=== PATIENT | female | born 1980 | race Caucasian/White ===

== ENCOUNTER 2021-08-10 04:23 | Emergency (ER) | payer MEDICAID, SELFPAY ==
[2021-08-10] VITALS (7 sets, daily range): BP systolic 112–141; BP diastolic 63–87; PULSE 77–94; RESP 16–18; TEMP 37.1; O2SAT 95–100; BMI 45.7
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
--- NOTE | 2021-08-10 06:49 | EKG12_ITS ---
Test Reason : CP Blood Pressure : / mmHG Vent. Rate : 075 BPM Atrial Rate : 075 BPM P-R Int : 134 ms QRS Dur : 084 ms QT Int : 412 ms P-R-T Axes : 016 055 012 degrees QTc Int : 460 ms Normal sinus rhythm Nonspecific T wave abnormality Prolonged QT Abnormal ECG Confirmed by ETELVINA GILLIAM, ARI ([id number]), medical transcription editor SERENITY MELTON ([id number]) on 08/11/2021 11:25:53 AM Referred By: Confirmed By:ARI MAIN MD
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
[2021-08-10 07:11] LABS: Mucous, Urine 0 SEEN /hpf (<or=2+)
[2021-08-10 07:14] LABS: Color, Urine Yellow (Yellow); Glucose, Dipstick Normal (Normal); Ketone-Dipstick 5 mg/dl (Negative); Leukocyte Esterase-Dipstick 500 /ul (Negative); Nitrite-Dipstick Positive (Negative); Occult Blood-Urine 50 /ul (Negative); Protein-Dipstick 30 mg/dl (Negative); Specific Gravity, Urine 1.015 (1.002-1.030); Urine Bilirubin Dipstick Negative (Negative); Urine Urobilinogen Normal (Normal)
[2021-08-10 07:15] LABS: Urine Clarity Sl Cloudy (Clear)
[2021-08-10 07:17] LABS: Internal QC Validated? YES +Cl - CLEAR BKGD; Pregnancy, Urine Negative Negative
[2021-08-10 07:20] LABS: White Blood Cells 50-100 SEEN /hpf (0-5)
[2021-08-10 07:21] LABS: Bacteria 2+ /hpf (None Seen); Red Blood Cells-Urine 5-10 SEEN /hpf (0-5); Squamous Epithelial Cells - UA 0-5 SEEN /hpf (5-10)
[2021-08-10 07:38] LABS: Absolute Lymphocyte Count 3.05 X10^3/uL (0.83-4.51); Absolute Neutrophil Count 12.1 X10^3/uL (2.0-7.7); Basophil# 0.06 X10^3/uL; Basophil% 0.4 % (0-1); Eosinophil# 0.22 X10^3/uL; Eosinophils% 1.3 % (0-5); Hematocrit 38.5 % (37-47); Hemoglobin 13.9 g/dL (12.0-15.0); Lymphocyte # 3.05 X10^3/ul (0.83-4.51); Lymphocyte % 18.6 % (19-41); Mean Corp Hgb Conc 36.1 g/dL (32-36); Mean Corpuscular Hgb 30.4 pg (27.0-32.0); Mean Corpuscular Volume 84.2 fL (81-99); Mean Platelet Vol. 9.2 fl (6.2-12.0); Monocyte# 0.83 X10^3/uL; Monocyte% 5.1 % (0-10); NRBC Flagged by Analyzer 0 % (0-5); Neutrophil # 12.11 X10^3/uL (2.7-7.7); Platelet Count 358 K/mm3 (150-450); RBC Distribution Width CV 14.6 % (11.6-14.6); RBC Distribution Width SD 44.4 fl (35.1-43.9); Red Blood Count 4.57 M/mm3 (4.2-5.4); White Blood Count 16.4 K/mm3 (4.4-11.0)
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
[2021-08-10 07:45] LABS: Amphetamine Urine VISTA POSITIVE (<1000 ng/mL); Barbiturate Urine VISTA NEGATIVE (< 200 ng/mL); Benzodiazepine Urine VISTA NEGATIVE (< 200 ng/mL); Cocaine Urine VISTA NEGATIVE (< 300 ng/mL); Ecstacy Urine VISTA NEGATIVE (< 500 ng/mL); Methadone Urine VISTA NEGATIVE (< 300 ng/mL); PCP Urine VISTA NEGATIVE (< 25 ng/mL); THC Urine VISTA POSITIVE (< 50 ng/mL); Vista UDS pH Range 6
[2021-08-10 07:51] LABS: Anion Gap 5 (5-15); BUN 7 mg/dL (7-18); BUN/Creat Ratio 7.2 RATIO (10-20); Calcium,Total 9.3 mg/dL (8.5-10.1); Chloride 107 mmol/L (98-107); Creatinine, Serum 0.97 mg/dL (0.55-1.02); EST Glomerular Filtration Rate 67 mL/min (>60); Est Glom Filt Rate - Afr Amer 81 mL/min (>60); Estimated Creatinine Clearance 59.76 ml/min; Glucose 100 mg/dL (74-106); Potassium 3.5 mmol/L (3.5-5.1); Sodium Level 139 mmol/L (136-145)
[2021-08-10 08:06] LABS: Acetaminophen (Tylenol) Level < 2.0 ug/mL (10.0-30.0); Alcohol, Blood (Medical)-Serum < 3.0 mg/dL; Salicylate 3.1 mg/dL (2.8-20.0)
[2021-08-10] MEDS: Ceftriaxone 1 GM/50 ML BAG IV (08:43)
[2021-08-10 09:13] LABS: CPK Total, Creatine Kinase 656 U/L (26-192)
[2021-08-10] MEDS: 0.9% Normal Saline 1,000 ML 999 ML IV (09:30)
--- NOTE | 2021-08-10 11:46 | CM.ED ---
Social Work Telephone call from Ibis miller. Patient is pending at [facility]. Will continue to follow. Sparkle Mitchell MSW, LINDSEY
[2021-08-10] MEDS: LORazepam 2 MG/ML Syringe 1 MG IV (12:00)
[2021-08-10] MEDS: Ziprasidone IM 20 MG/ML VIAL IM (13:09)
--- NOTE | 2021-08-10 13:35 | ED.RN ---
PT. BECAME AGITATED EARLIER AFTER LEARNING THEY HAD BEEN PINK SLIPPED. WAS MEDICATED PER ORDER. IS CURRENTLY TEARFUL IN BED. WILL CONTINUE TO MONITOR.
--- NOTE | 2021-08-10 17:15 | CM.ED ---
Social Work Telephone call from Neal Winters. Request for COVID-19 test results to be faxed, we can't read the ones we have. COVID-19 test results faxed. Will continue to follow. Sparkle HIGGINS, LINDSEY
--- NOTE | 2021-08-10 19:17 | CM.ED ---
Social Work Telephone call from Nani Estevez. Patient has been accepted to [facility], need pink slip before able to give admitting information. [address] slip faxed to [facility]. Nursing staff updated. Will continue to follow. Sparkle HIGGINS, LINDSEY
--- NOTE | 2021-08-10 21:15 | CM.ED ---
Social Work Telephone call to [facility], david. Patient accepted by Dr. Mojica to the 1400 unit. Nurse to call report to [phone]. Medical team updated. [facility] to set up transportation. PLAN: [facility]. Sparkle HIGGINS, LINDSEY
--- NOTE | 2021-08-10 22:39 | ED.RN ---
PT. REQUESTED HOME MEDICATION DOXEPIN AND GABAPENTIN. DR. KABA GAVE VERBAL ORDER. SEE MAR.
[2021-08-10] MEDS: DOXEPIN HCL 50 MG CAPSULE PO (23:14)
[2021-08-10] MEDS: Gabapentin 300 MG Capsule PO (23:14)
--- NOTE | 2021-08-10 23:15 | ED.RN ---
PT. C/O'D OF CHEST PAIN, MID STERNAL. CALLED FOR EKG.
--- NOTE | 2021-08-10 23:36 | EKG12_ITS ---
Test Reason : MEDICAL CLEARANCE Blood Pressure : / mmHG Vent. Rate : 077 BPM Atrial Rate : 077 BPM P-R Int : 142 ms QRS Dur : 082 ms QT Int : 410 ms P-R-T Axes : 025 053 000 degrees QTc Int : 463 ms Normal sinus rhythm Nonspecific T wave abnormality Confirmed by ETELVINA GILLIAM, ARI ([id number]), production editor SERENITY MELTON ([id number]) on 08/11/2021 11:26:11 AM Referred By: ANA MARIA Confirmed By:ARI MAIN MD
[2021-08-11 00:15] VITALS: RESP 18
[2021-08-11 02:06] VITALS: RESP 16
[2021-08-11 03:45] VITALS: RESP 18
[2021-08-11 04:12] VITALS: PULSE 72; RESP 18; O2SAT 95
[2021-08-11 05:05] VITALS: RESP 16
== END 2021-08-11 05:21 ==
PROVIDERS: Emergency Medicine; Emergency Provider Emergency Medicine; Visit Provider Emergency Medicine
DX: F22 Delusional disorders (principal); F41.9 Anxiety disorder, unspecified; N39.0 Urinary tract infection, site not specified; E66.9 Obesity, unspecified; F17.210 Nicotine dependence, cigarettes, uncomplicated
CPT/HCPCS: 36415; 80048; 80307; 80329; 81001; 81025; 82077; 82550; 85025; 87086; 87088; 87186; 87426; 93005; 96361; 96365; 96372; 96375; 99285; J7030; A4216; G0480; J3486

== ENCOUNTER 2021-09-18 11:01 | Emergency (ER) | payer MEDICAID, SELFPAY ==
[2021-09-18 11:01] VITALS: BP 128/84; PULSE 80; RESP 18; TEMP 36.6; O2SAT 97; BMI 41.5
--- NOTE | 2021-09-18 13:13 | EX.ED.DYSGE1 ---
HPI History of Present Illness Chief Complaint: Abd Pain Narrative Narrative: 40-year-old female with PMH of schizophrenia, anxiety/depression presents with abdominal pain. She is very vague with her history. She states she has had lower abdominal pain for a while. Nothing makes it better or worse. She denies fever, chills, nausea, or vomiting. She reports normal bowel movements and urination. No abdominal surgical history. She denies drinking alcohol. Denies alcohol use. She says she is taking gabapentin, prazosin, and Klonopin. [facility] Medical History (Updated 09/18/21 @ 15:35 by BRAVO Armendariz) Bipolar 1 disorder Depression PTSD (post-traumatic stress disorder) Home Medications clonazepam 0.5 mg PO DAILY 09/18/21 [History Last Taken Unknown] diphenhydramine HCl [Banophen] 50 mg PO DAILY 09/18/21 [History Last Taken Unknown] doxepin 50 mg PO DAILY 09/18/21 [History Last Taken Unknown] fluphenazine HCl 5 mg PO DAILY 09/18/21 [History Last Taken Unknown] gabapentin 300 mg PO DAILY 09/18/21 [History Last Taken Unknown] hydroxyzine pamoate 50 mg PO DAILY 09/18/21 [History Last Taken Unknown] metronidazole 500 mg PO DAILY 09/18/21 [History Last Taken Unknown] omeprazole 40 mg PO DAILY 09/18/21 [History Last Taken Unknown] oxcarbazepine 300 mg PO DAILY 09/18/21 [History Last Taken Unknown] prazosin 1 mg PO DAILY 09/18/21 [History Last Taken Unknown] sertraline 100 mg PO DAILY 09/18/21 [History Last Taken Unknown] ziprasidone HCl 60 mg PO DAILY 09/18/21 [History Last Taken Unknown] Allergy/AdvReac Type Severity Reaction Status Date / Time ibuprofen AdvReac Other Verified 08/10/21 04:34 naproxen AdvReac Other Verified 08/10/21 04:34 Social History Smoking Status: Current every day smoker tobacco type: cigarettes ROS ROS ED ROS Narrative Constitutional: Negative for fever, chills, malaise. Eyes: Negative for visual change. ENT: Negative for sore throat, rhinorrhea. CVS: Negative for palpitations, chest pain, syncope. Respiratory: Negative for shortness of breath, cough, orthopnea. GI: Positive for abdominal pain. Negative for nausea, vomiting, diarrhea, constipation, melena, hematochezia. : Negative for dysuria, hematuria or frequency. Neuro: Negative for headache, motor/sensory dysfunction. Skin: Negative for rash, abscess, or wound. Musc: Negative for joint pain, swelling, trauma. Heme: Negative for easy bruising, bleeding, lymphadenopathy. EXAM Physical Exam Narrative Exam Narrative: CONST: Patient sitting in no acute distress. EYES: Normal inspection. ENT: Normal inspection, moist mucous membranes. NECK: Normal inspection. RESP: No respiratory distress, CTAB. CVS: Regular rate and rhythm, no murmur, no gallop. ABD: Soft with mild diffuse tenderness, no guarding or rebound, nondistended, no hepatosplenomegaly. Back: Normal inspection. SKIN: Color normal, no rash, warm, dry, intact. EXTREMITIES: Normal appearance, no pedal edema. NEURO: Oriented x4. PSYCH: Normal affect. Const Vital Signs: 09/18/21 11:01 Temperature 98 F Temperature Source Temporal Pulse Rate 80 Respiratory Rate 18 Blood Pressure 128/84 H Blood Pressure Mean 98 Pulse Ox 97 Oxygen Delivery Method Room Air MDM MDM MDM Narrative Medical decision making narrative: Patient presents with nonspecific abdominal pain. She appears well nontoxic. Vital signs within normal limits. On examination her heart is regular rate and rhythm. Lungs clear to auscultation. Abdomen is soft with mild diffuse tenderness but no guarding or rebound. Labs show slight leukocytosis at 13.4, otherwise unremarkable. UA and hCG are negative. CT abdomen/pelvis shows no acute process. Patient seemed confused and would not provide a lot of history. She does states she has schizophrenia. For this reason a urine drug screen was obtained and is negative. She will be evaluated by social work to make sure she has somewhere safe to go but at this point she is medically cleared for discharge. Diagnosis 1. Abdominal pain of unknown etiology Lab Data Labs: Laboratory Results - last 24 hr 09/18/21 09/18/21 09/18/21 13:15 13:15 14:00 WBC 13.4 H RBC 4.83 Hgb 14.7 Hct 43.0 MCV 89.0 MCH 30.4 MCHC 34.2 RDW Std Deviation 45.1 H RDW Coeff of Tyson 13.9 Plt Count 298 MPV 9.4 Immature Gran % (Auto) 0.500 Neut % (Auto) 71.1 H Lymph % (Auto) 22.7 Burnet % (Auto) 4.2 Eos % (Auto) 1.2 Baso % (Auto) 0.3 Absolute Neuts (auto) 9.5 H Absolute Lymphs (auto) 3.04 Nucleated RBC % 0 Sodium 138 Potassium 3.8 Chloride 107 Carbon Dioxide 30.0 Anion Gap 1 L BUN 8 Creatinine 0.81 Estim Creat Clear Calc 74.84 Est GFR (MDRD) Af Amer 99 Est GFR (MDRD) Non-Af 82 BUN/Creatinine Ratio 9.9 L Glucose 138 H Calcium 8.9 Total Bilirubin 0.30 AST 18 ALT 42 Alkaline Phosphatase 76 Total Protein 7.6 Albumin 3.9 Globulin 3.7 Albumin/Globulin Ratio 1.1 Urine Color Urine Clarity Urine pH Ur Specific [place] Urine Protein Urine Glucose (UA) Urine Ketones Urine Occult Blood Urine Nitrite Urine Bilirubin Urine Urobilinogen Ur Leukocyte Esterase Urine RBC Urine WBC Ur Squamous Epith Cells Urine Bacteria Urine Mucus Urine Test Urine Opiates Screen NEGATIVE Urine Methadone Screen NEGATIVE Ur Barbiturates Screen NEGATIVE Ur Phencyclidine Scrn NEGATIVE Ur Amphetamines Screen NEGATIVE MDMA (Ecstasy) Screen NEGATIVE U Benzodiazepines Scrn NEGATIVE Urine Cocaine Screen NEGATIVE U Cannabinoids Screen NEGATIVE Ur Drug Screen Comment 09/18/21 14:00 WBC RBC Hgb Hct MCV MCH MCHC RDW Std Deviation RDW Coeff of Tyson Plt Count MPV Immature Gran % (Auto) Neut % (Auto) Lymph % (Auto) Burnet % (Auto) Eos % (Auto) Baso % (Auto) Absolute Neuts (auto) Absolute Lymphs (auto) Nucleated RBC % Sodium Potassium Chloride Carbon Dioxide Anion Gap BUN Creatinine Estim Creat Clear Calc Est GFR (MDRD) Af Amer Est GFR (MDRD) Non-Af BUN/Creatinine Ratio Glucose Calcium Total Bilirubin AST ALT Alkaline Phosphatase Total Protein Albumin Globulin Albumin/Globulin Ratio Urine Color Yellow Urine Clarity Clear Urine pH 6.0 Ur Specific [place] 1.020 Urine Protein Negative Urine Glucose (UA) Normal Urine Ketones Negative Urine Occult Blood Negative Urine Nitrite Negative Urine Bilirubin Negative Urine Urobilinogen Normal Ur Leukocyte Esterase 25 H Urine RBC 0 SEEN Urine WBC 0 SEEN Ur Squamous Epith Cells 0 SEEN Urine Bacteria 0 SEEN Urine Mucus 0 SEEN Urine Test Negative Urine Opiates Screen Urine Methadone Screen Ur Barbiturates Screen Ur Phencyclidine Scrn Ur Amphetamines Screen MDMA (Ecstasy) Screen U Benzodiazepines Scrn Urine Cocaine Screen U Cannabinoids Screen Ur Drug Screen Comment Radiography Diagnostic Testing: Clinical Impression(s) from Imaging Studies Abdomen/Pelvis CT 09/18/21 14:32 IMPRESSION: Negative CT of the abdomen and pelvis with intravenous contrast. Individualized dose optimization techniques were used for this CT. at 1524 Reported and signed by: David Tesfaye MD Electronically Signed: David Tesfaye MD at 15:23 EDT , Discharge Plan Triage Chief Complaint: Abd Pain Dx/Rx/DC Orders Clinical Impression: Abdominal pain Instructions: Abdominal Pain Prescriptions: No Action doxepin 50 mg capsule 50 mg PO DAILY RF: 0 diphenhydramine HCl [Banophen] 50 mg capsule 50 mg PO DAILY RF: 0 prazosin 1 mg capsule 1 mg PO DAILY RF: 0 clonazepam 0.5 mg tablet 0.5 mg PO DAILY RF: 0 sertraline 100 mg tablet 100 mg PO DAILY RF: 0 hydroxyzine pamoate 50 mg capsule 50 mg PO DAILY RF: 0 metronidazole 500 mg tablet 500 mg PO DAILY RF: 0 oxcarbazepine 300 mg tablet 300 mg PO DAILY RF: 0 omeprazole 40 mg capsule,delayed release(DR/EC) 40 mg PO DAILY RF: 0 gabapentin 300 mg capsule 300 mg PO DAILY RF: 0 ziprasidone HCl 60 mg capsule 60 mg PO DAILY RF: 0 fluphenazine HCl 5 mg tablet 5 mg PO DAILY RF: 0 Primary Care Provider: Care Physician,No Primary Referrals: Care Physician,No Primary [Primary Care Provider] - Activity Restrictions/Additional Instructions: Today your blood work and urine tests look normal. We did a CAT scan of your abdomen and pelvis which also appeared normal. The cause of your abdominal pain is unknown. Please take Tylenol ibuprofen as needed and follow-up with your primary care doctor. Disposition Disposition: Home, Self Care
[2021-09-18] MEDS: Ondansetron 4 MG/2 ML Vial IV (13:18)
[2021-09-18] MEDS: Ketorolac 15 MG/ML Vial IV (13:18)
[2021-09-18 13:23] LABS: Absolute Lymphocyte Count 3.04 X10^3/uL (0.83-4.51); Absolute Neutrophil Count 9.5 X10^3/uL (2.0-7.7); Basophil# 0.04 X10^3/uL; Basophil% 0.3 % (0-1); Eosinophil# 0.16 X10^3/uL; Eosinophils% 1.2 % (0-5); Hemoglobin 14.7 g/dL (12.0-15.0); Lymphocyte # 3.04 X10^3/ul (0.83-4.51); Lymphocyte % 22.7 % (19-41); Mean Corp Hgb Conc 34.2 g/dL (32-36); Mean Corpuscular Hgb 30.4 pg (27.0-32.0); Mean Platelet Vol. 9.4 fl (6.2-12.0); Monocyte# 0.56 X10^3/uL; Monocyte% 4.2 % (0-10); NRBC Flagged by Analyzer 0 % (0-5); Neutrophil % 71.1 % (47-70); Platelet Count 298 K/mm3 (150-450); RBC Distribution Width CV 13.9 % (11.6-14.6); RBC Distribution Width SD 45.1 fl (35.1-43.9); Red Blood Count 4.83 M/mm3 (4.2-5.4); White Blood Count 13.4 K/mm3 (4.4-11.0)
[2021-09-18] MEDS: 0.9% Normal Saline 1,000 ML 999 ML IV (13:32)
[2021-09-18 13:46] LABS: ALB/GLOB Ratio 1.1 RATIO (0.9-2.4); AST(SGOT) 18 U/L (15-37); Alanine Aminotransfer ALT/SGPT 42 U/L (13-56); Albumin, Serum 3.9 g/dL (3.2-5.0); Alkaline Phosphatase 76 U/L (45-117); Anion Gap 1 (5-15); BUN 8 mg/dL (7-18); BUN/Creat Ratio 9.9 RATIO (10-20); Calcium,Total 8.9 mg/dL (8.5-10.1); Chloride 107 mmol/L (98-107); Creatinine, Serum 0.81 mg/dL (0.55-1.02); EST Glomerular Filtration Rate 82 mL/min (>60); Est Glom Filt Rate - Afr Amer 99 mL/min (>60); Estimated Creatinine Clearance 74.84 ml/min; Globulin 3.7 g/dL (2.2-4.2); Glucose 138 mg/dL (74-106); Potassium 3.8 mmol/L (3.5-5.1); Protein, Total 7.6 g/dL (6.4-8.2); Sodium Level 138 mmol/L (136-145)
[2021-09-18 14:06] LABS: Bacteria 0 SEEN /hpf (None Seen); Mucous, Urine 0 SEEN /hpf (<or=2+); Red Blood Cells-Urine 0 SEEN /hpf (0-5); Squamous Epithelial Cells - UA 0 SEEN /hpf (5-10); White Blood Cells 0 SEEN /hpf (0-5)
[2021-09-18 14:13] LABS: Color, Urine Yellow (Yellow); Glucose, Dipstick Normal (Normal); Ketone-Dipstick Negative (Negative); Leukocyte Esterase-Dipstick 25 /ul (Negative); Nitrite-Dipstick Negative (Negative); Occult Blood-Urine Negative /ul (Negative); Protein-Dipstick Negative (Negative); Urine Bilirubin Dipstick Negative (Negative); Urine Clarity Clear (Clear); Urine Urobilinogen Normal (Normal)
[2021-09-18 14:16] LABS: Internal QC Validated? YES +Cl - CLEAR BKGD; Pregnancy, Urine Negative Negative
[2021-09-18 14:28] LABS: Amphetamine Urine VISTA NEGATIVE (<1000 ng/mL); Barbiturate Urine VISTA NEGATIVE (< 200 ng/mL); Benzodiazepine Urine VISTA NEGATIVE (< 200 ng/mL); Cocaine Urine VISTA NEGATIVE (< 300 ng/mL); Ecstacy Urine VISTA NEGATIVE (< 500 ng/mL); Methadone Urine VISTA NEGATIVE (< 300 ng/mL); PCP Urine VISTA NEGATIVE (< 25 ng/mL); THC Urine VISTA NEGATIVE (< 50 ng/mL); Vista UDS pH Range 5
--- NOTE | 2021-09-18 14:32 | CT_ITS ---
EXAM: CT ABDOMEN AND PELVIS WITH INTRAVENOUS CONTRAST : 1980 CLINICAL INDICATION: abdominal pain TECHNIQUE: Helically acquired images were obtained of the abdomen and pelvis with intravenous contrast. This CT exam was performed using one or more of the following dose reduction techniques: automated exposure control, adjustment of the mA and/or kV according to patient size, and/or use of iterative reconstruction technique. This report was created using SGB report generation technology. CONTRAST: IV 100mL Isovue-300 COMPARISON: None. FINDINGS: LOWER THORAX: Unremarkable. Lung bases are clear. No cardiomegaly. No significant pericardial effusion. ABDOMEN: LIVER: Unremarkable. Homogeneous. No focal mass. GALLBLADDER AND BILE DUCTS: Unremarkable. No calcified gallstones. No gallbladder distention or wall edema. No intra- or extrahepatic biliary ductal dilation. PANCREAS: Unremarkable. No focal cystic or solid mass. SPLEEN: Unremarkable. Normal size without focal cystic or solid mass. ADRENALS: Unremarkable. No nodules. KIDNEYS AND URETERS: Unremarkable. Normal renal size and position. No hydronephrosis. STOMACH AND BOWEL: Unremarkable. No stomach or bowel distention. No focal inflammatory change. PELVIS: APPENDIX: No evidence of acute appendicitis. BLADDER: Unremarkable. REPRODUCTIVE: Unremarkable as visualized. No mass. ABDOMEN and PELVIS: INTRAPERITONEAL SPACE: Unremarkable. No ascites or other fluid collection. No free air. BONES/JOINTS: Unremarkable. No suspicious lytic or blastic abnormality. SOFT TISSUES: Unremarkable. No discrete abdominal or pelvic wall hernia. VASCULATURE: Unremarkable. Abdominal aorta is non-dilated. LYMPH NODES: Unremarkable. No enlarged lymph nodes. CT/Abdomen/Pelvis W IV Cont ONLY IMPRESSION: Negative CT of the abdomen and pelvis with intravenous contrast. Individualized dose optimization techniques were used for this CT. at 1524 Reported and signed by: David Tesfaye MD Electronically Signed: David Tesfaye MD at 15:23 EDT ,
--- NOTE | 2021-09-18 16:10 | CM.ED ---
Social Work Consult: Resources Met with patient in room. Introduced self and social sciences lecturer role. Patient reports to have nowhere to go. This social sciences lecturer inquired if patient is familiar with local prison, [facility]. Patient states I can't go there. Patient open to other shelters but does not have transportation. Patient reports to have been living with family but I can't be there anymore. Patient agreeable to this social sciences lecturer going to make some phone calls to facilitate patient options. Telephone call to the [facility], [facility] reports that patient has a bed being held for patient and patient is welcome to come. This social sciences lecturer back to patient room to updated on above information. Patient states I don't want to go there and starts to scratch at patient arms. Patient states I need my medications. I think I want to . Patient states to not feel safe to self. This social sciences lecturer communicating that this social sciences lecturer could still look into other housing options as patient, patient states I want to . This social sciences lecturer inquired if patient is being harmed at the [facility], patient states no. Active support and listening provided. Patient with bizarre behavior throughout conversation. This social sciences lecturer updated nursing staff on above along with P.A. 1:1 sitter protocol to be put into place. Will continue to follow for formal assessment. Sparkle HIGGINS, LINDSEY
--- NOTE | 2021-09-18 16:26 | ED.RN ---
This RN went into discharge patient. Pt. responded with where am I going to go tonight? I have no where to go. This RN reminded pt. that SW had already come into speak with her about skilled nursing placement for tonight. Pt. refuses any shelters in [place] and has no ride to go to a skilled nursing out of [facility]. ANNA MARIE and Marline CORDON came in to remind patient of her options and she states I want to go to a mental hospital and as this RN is taking out her IV she states What if I want to kill myself? I want to go to the mental hospital. I am going to kill myself.. Shyann THRASHER at bedside to assess patient.
[2021-09-18 17:45] LABS: Alcohol, Blood (Medical)-Serum < 3.0 mg/dL
--- NOTE | 2021-09-18 18:40 | CM.ED ---
Social Work Consult: Mental Health Referral source: Jarrell Hooper Chief Complaint: Patient reports to have suicidal thoughts, maybe, yes, no. Marital social history: Single. Living Situation: Patient currently stay at the local halfway through the [employer]. Support/Resources: none. History: Denies. Education/Employment History: GED. states I don't know when this social and human services assistant inquired if patient has issues with reading/writing. Mental Health treatment/History: Bipolar 1, Depression, PTSD. Patient with history of inpatient psychiatric placement. Patient reports to be out of medication but to be prescribed medication that patient is to be taking. Triggers/Stressors: Patient looks at this social and human services assistant with a blank stair when this social and human services assistant inquired about triggers/stressors and then states uh no. Coping Skills: Does not answer question. Abuse Issues: Does not respond to question, blank stair. Substance Abuse Hx: I don't know. Risk to self/others: Patient states just want to . This social and human services assistant inquired if patient has any plan to by suicide. Patient shows this social and human services assistant patient forearms and states I have been trying to . Patient states not sure to the question of if patient has had any suicidal attempts in the past. Patient denies homicidal thoughts. Patient reports self harming by cutting self on forearm. Mental status exam: A&Ox3 Appearance/General Behavior: Disheveled. Unkept. Calm. Mood/Affect: Depressed. Communication Pattern: Responds to some questions. Thought Process: Denies visual or auditory hallucinations to this social and human services assistant but does often times appear to be looking off at something that is not present. Patient with bizarre thought process and would sometimes respond to questions in odd manners. Judgement: Poor. Assessment: Met with patient in room. Introduced self and social and human services assistant role. Patient agreeable to speak with this social and human services assistant. Patient states I just want to multiple times. Patient states I need my medications. Patient states to not be sure who prescribes patient medications. Patient agreeable to inpatient psychiatric placement for stabilization. Collaborating with Wili Morillo, agreeable to inpatient psychiatric placement as patient reports to not feel safe to self and reports desire and wishes to be . PLAN: Inpatient psychiatric placement. Will continue to follow. Sparkle HIGGINS, LINDSEY
--- NOTE | 2021-09-18 19:01 | CM.ED ---
Social Work Telephone call to [facility]. Clinical information faxed. Will continue to follow. Sparkle HIGGINS, LINDSEY
[2021-09-18 19:20] VITALS: BP 105/60; PULSE 68; RESP 16; TEMP 36.8; O2SAT 96
--- NOTE | 2021-09-18 19:58 | CM.ED ---
Social Work Telephone call to [facility], this social contact worker provided number to main ED for determination as end of social work shift. Medical team updated. Sparkle HIGGINS, LINDSEY
[2021-09-18] MEDS: Gabapentin 300 MG Capsule PO (20:43)
[2021-09-18] MEDS: clonazePAM 0.5 MG Tablet PO (20:43)
[2021-09-18] MEDS: DOXEPIN HCL 50 MG CAPSULE PO (20:43)
[2021-09-19 01:37] VITALS: BP 105/60; PULSE 68; RESP 16; TEMP 36.8; O2SAT 98
== END 2021-09-19 01:39 ==
PROVIDERS: Emergency Provider Physician Assistant; Visit Provider Physician Assistant
DX: R10.30 Lower abdominal pain, unspecified (principal); F20.9 Schizophrenia, unspecified; F31.9 Bipolar disorder, unspecified; R45.851 Suicidal ideations; F41.9 Anxiety disorder, unspecified; F43.10 Post-traumatic stress disorder, unspecified; F17.210 Nicotine dependence, cigarettes, uncomplicated; Z59.00 Homelessness unspecified; Z79.899 Other long term (current) drug therapy
CPT/HCPCS: 74177; 80053; 80307; 81001; 81025; 82077; 85025; 87811; 96361; 96374; 96375; 99285; J7030; Q9967; A4216; J2405